=== PATIENT | female | born 1930 | race Caucasian/White ===

== ENCOUNTER 2016-10-08 00:12 | Inpatient (IN) | payer MEDICARE, BC, OTHER ==
--- NOTE | ~2016-10-08 | EGD ---
EGD REPORT [facility] [address] [address] NAME: CAROLYNE GUZMAN : 34 STATUS : ADM IN PAT#: [id number] AGE: 86 ADM/REG DATE : 10/08/16 MR#: [id number] REPORT SERV DATE: 10/09/16 DICTATED BY: TOBI JAVIER DATE: 10/09/16 REPORT STATUS : Draft TRANSCRIBED BY: [facility] DATE: 10/09/16 [facility] Patient Name: Carolyne Guzman Date of : 1930 Attending MD: TOBI JAVIER MD Procedure Date No Time: 10/09/2016 Procedure: Colonoscopy Indications: Hematochezia Referring MD: Willie Mcbride Medicines: Monitored Anesthesia Care Complications: No immediate complications. Estimated blood loss: Minimal. Procedure: Pre-Anesthesia Assessment: - ASA Grade Assessment: III - A patient with severe systemic disease. After I obtained informed consent, the scope was passed under direct vision. Throughout the procedure, the patient's blood pressure, pulse, and oxygen saturations were monitored continuously. The CF [id number] was introduced through the anus and advanced to the cecum, identified by appendiceal orifice and ileocecal valve. The colonoscopy was performed without difficulty. The patient tolerated the procedure well. The quality of the bowel preparation was fair. Findings: The perianal and digital rectal examinations were normal. Pertinent negatives include normal sphincter tone and no palpable rectal lesions. A 12 mm ulcerated polypoid lesion was found in the transverse colon. Oozing was present. Biopsies were taken with a cold forceps for histology. Area was successfully injected with 5 mL Spot (carbon black) for tattooing. Estimated blood loss was minimal. A semi-sessile polyp was found in the transverse colon. The polyp was 10 mm in size. The polyp was removed with a hot snare. Resection and retrieval were complete. Estimated blood loss was minimal. A few small-mouthed diverticula were found in the sigmoid colon. Non-bleeding internal hemorrhoids were found during retroflexion and were medium-sized. The exam was otherwise without abnormality. Impression: - Rule out malignancy, tumor in the transverse colon. Biopsied. Injected. Likely source of bleeding. - One 10 mm polyp in the transverse colon. Resected and retrieved. - Diverticulosis in the sigmoid colon. EGD REPORT [address] [place]. [address] NAME: CAROLYNE GUZMAN : 32 STATUS : ADM IN [facility]#: [id number] AGE: 86 ADM/REG DATE : 10/08/16 MR#: [id number] REPORT SERV DATE: 10/09/16 DICTATED BY: TOBI JAVIER DATE: 10/09/16 REPORT STATUS : Draft TRANSCRIBED BY: [facility] DATE: 10/09/16 - Non-bleeding internal hemorrhoids. - The examination was otherwise normal. Recommendation: - Return patient to [facility] for [facility]. - Await pathology results. - Clear liquid diet. - Need to hold ASA and Plavix for now Procedure Code(s): --- Professional --- 59320, Colonoscopy, flexible, proximal to splenic flexure; with removal of tumor(s), polyp(s), or other lesion(s) by snare technique 84936, 59, Colonoscopy, flexible, proximal to splenic flexure; with biopsy, single or multiple 42908, Colonoscopy, flexible, proximal to splenic flexure; with directed submucosal injection(s), any substance Diagnosis Code(s): --- Professional --- D49.0, Neoplasm of unspecified behavior of digestive system D12.3, Benign neoplasm of transverse colon K64.8, Other hemorrhoids K57.30, Diverticulosis of large intestine without perforation or abscess without bleeding K92.1, Melena CPT copyright 2013 [employer]. All rights reserved. The codes documented in this report are preliminary and upon skilled trades teacher review may be revised to meet current compliance requirements. Tobi Javier MD TOBI JAVIER MD 10/09/2016 10:08 AM This report has been signed electronically. Number of Addenda: 0 Note Initiated On: 10/09/2016 9:17 AM Scope Withdrawal Time 0 hours 19 minutes 54 seconds [address] [id number]
--- NOTE | ~2016-10-08 | OP ---
Record Of Operation [facility] [address] [place]. [address] NAME: VIKTORIYA HERNANDES : [birth year] STATUS : ADM IN 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 PROCEDURES: Laparoscopic right colectomy with resection of terminal ilium and ileocolonic anastomosis. SURGEON: Samir Dodd M.D. ANESTHESIA: General with intubation. COMPLICATIONS: None. ESTIMATED BLOOD LOSS: 25 mL. SPECIMENS: Terminal ileum, right colon up to the proximal transverse colon. LAP AND SPONGE COUNTS: Correct x3. DRAINS: Silicone drain in subcutaneous tissue. BRIEF HISTORY: This 86-year-old female had been admitted to the hospital emergently with evidence for GI bleeding. Her workup revealed evidence for a cancer and what was thought to be the transverse colon associated with this bleeding. The patient's workup showed no evidence for metastatic disease. It was felt that laparoscopic partial colectomy, possible laparotomy, was indicated. This procedure, the risks, benefits, and alternatives, including but not limited to the risk for bleeding, infection, enterotomy, injury to any abdominal structure, postop small bowel obstruction, ileus, incisional hernia, dehiscence, anastomotic leak, requiring reoperation with ileostomy, ureteral injury, possible need for laparotomy, and unforeseen complications including deep venous thrombosis, pulmonary embolus, myocardial infarction, stroke, pneumonia, and were fully and completely explained to the patient and family at length prior to the surgery. The fact that this was a major operation with risk for major morbidity and mortality in this elderly frail patient with dementia was explained. Their questions were answered. They understood the risks and agreed to the surgery as planned. DESCRIPTION OF PROCEDURE: After being properly identified and after discussing the risks of the surgery with the patient and family again in the preoperative area, she was taken to the operating room and placed in the supine position on the operating room table. General anesthesia was administered. She was intubated without difficulty. A De La Cruz catheter was inserted. The abdomen was prepped and draped sterilely in the usual fashion. After an appropriate "time-out" per [facility] standards, a small transverse incision was made just below Record Of Operation [address] [address] NAME: VIKTORIYA HERNANDES : 32 STATUS : ADM IN PAT#: [id number] AGE: 86 ADM/REG DATE : 10/08/16 MR#: [id number] REPORT SERV DATE: 10/11/16 DICTATED BY: SAMIR DODD III DATE: 10/11/16 REPORT STATUS : Draft TRANSCRIBED BY: MODL DATE: 10/11/16 the umbilicus. The skin and fascia on either side of this were elevated with towel clips. A Veress needle was placed through the incision into the peritoneal cavity. Correct position of the needle in the peritoneal cavity was confirmed by the hanging drop test. The abdominal cavity was insufflated to about 13 mmHg of carbon dioxide. The correct position of air in the peritoneal cavity was confirmed by palpation. The Veress needle was removed and replaced with a 10-mm trocar. The laparoscope was placed through this. The abdomen was inspected. We identified the area which had been tattooed in the mid right colon. There was no evidence for carcinomatosis or peritoneal implants. A 5-mm trocar was then placed in the midline, midway between the umbilicus and xiphoid process, under direct vision of the laparoscope. Another 5-mm trocar was placed in the midline, just above the pubis, also under direct vision of the laparoscope. Again, the abdomen was inspected. All quadrants were inspected, and the liver was inspected. There was no evidence for metastatic disease. The appropriate instruments were placed through the trocars. The patient was rolled slightly to her left. The right colon was grasped and retracted medially. Using sharp dissection, the peritoneal reflection of the right colon was divided along the line of Toldt, from the cecum to the hepatic flexure. The colohepatic ligament was divided. After full mobilization of the right colon, a small right subcostal incision was made directly over the hepatic flexure. The incision was continued through the subcutaneous tissue. Hemostasis was controlled with cautery. The incision was continued through all layers of fascia. The abdominal cavity was entered. The right colon was mobilized into the wound. We identified the area which had been tattooed by the endoscopist in the mid right colon. There was a palpable tumor here. The tumor again appeared to be in the right colon rather than in the transverse colon. We selected a point for division of terminal ileum just proximal to the ileocecal valve. A window was made in the mesentery to the ileum at this point. A HI stapler used about the ileum at this point. We then made a window in the mesentery to the proximal transverse colon just beyond the hepatic flexure and a HI stapler was used about the colon at this point. The mesentery to the right colon was then divided along the base of the mesentery using the Harmonic scalpel. This was done along the base of the mesentery so as to perform a correct oncologic dissection of the lymphovascular supply to the right colon. Great care was taken not to injure the duodenum. The right colon was thus removed. Interpreted as containing the cancer with clear margins. It was clear that this lesion again was the lesion which had been marked by the endoscopist. We then performed a [id number]-kjth anastomosis between the divided terminal ileum and the proximal transverse colon. This was performed by aligning the antimesenteric border of small bowel with antimesenteric border of the colon with interrupted 3-0 silk sutures. A small opening was then made in the antimesenteric border of the small bowel and corresponding antimesenteric border of the colon. A HI stapler was placed through this and fired. The defect created by the stapler was then closed with a TA-60 stapler. This staple line was oversewn with interrupted 3-0 silk sutures. The "crotch" anastomosis was secured with 3-0 silk sutures. Upon completion of this, the anastomosis was widely patent to palpation. It was not twisted or kinked in anyway and was not under any tension. The Record Of Operation [facility] [address] [facility] [place]. [address] NAME: VIKTORIYA HERNANDES : 32 STATUS : ADM IN [facility]#: [id number] AGE: 86 ADM/REG DATE : 10/08/16 MR#: [id number] REPORT SERV DATE: 10/11/16 DICTATED BY: SAMIR DODD III DATE: 10/11/16 REPORT STATUS : Draft TRANSCRIBED BY: MODL DATE: 10/11/16 mesenteric defect was closed with a running 3-0 chromic suture. It should be noted on opening the colon before the anastomosis, there was noted to be old blood within the lumen of the colon. Again, the anastomosis was patent to palpation. When completed, it was not twisted or kinked in anyway, and it was not under any tension. This was reduced back into the abdominal cavity. The right upper quadrant was irrigated copiously with saline. Hemostasis was assured. The fascia of this incision was closed in two layers with a looped #1 running PDS suture. All trocars were removed. The fascia of the infraumbilical incision was closed with 0 Vicryl suture. The skin incisions were closed with a running subcuticular 4-0 Monocryl stitches. The right subcostal incision was closed by closing the subcutaneous tissue with a running 3-0 chromic suture over a silicone drain which was brought out through the lateral aspect of the incision. The incisions were injected with 0.5% Marcaine. Dressings were applied. Anesthesia was reversed, and the patient was taken to the recovery room in stable condition. She tolerated the procedure well. Her family was informed the results of the surgery. The patient will remain in the hospital for postoperative care. RHJ/DARREL Samir Dodd III, M.D. / [id number] CC: Billy Pollock MD William M. Cooney, MD
--- NOTE | ~2016-10-08 | HP ---
History And Physical [facility] [address] [place]. [address] NAME: VIKTORIYA GUZMAN : 32 STATUS : ADM IN [facility]#: [id number] AGE: 86 ADM/REG DATE : 10/08/16 MR#: [id number] REPORT SERV DATE: 10/08/16 DICTATED BY: JAMAAL CAT DATE: 10/08/16 REPORT STATUS : Draft TRANSCRIBED BY: MODL DATE: 10/08/16 DATE OF ADMISSION: 10/08/2016 CHIEF COMPLAINT: Bright red blood per rectum. HISTORY OF PRESENT ILLNESS: This is an 86-year-old female with a history of CVA in 2005, essential hypertension, and hypothyroidism, who presents to the Emergency Room at [facility] with the above-mentioned complaint. History is obtained from the patient, her daughter who was at bedside, and reviewing data available on the MyClasses system. According to Ms. Guzman, she had been in usual state of health until about two weeks ago when she states she fell down or slipped off very tall bed on to the floor and fell on her buttocks. Since then, she has been sore in her bottom. Now two weeks later, she says about two days ago, she started seeing some blood in her stools. She felt like she had to go and have a bowel movement and felt it very smooth. When she looked down, it was a lot of blood in the toilet. Also, when she wiped, she saw blood. She had another episode the same day and then the next day, she had two more episodes similar to this when she mentioned it to her daughter they decided to come in to the ER to be evaluated. In the emergency room, initial workup revealed stable hemoglobin hematocrit levels, CT scan of her abdomen and pelvis did not reveal any acute gastrointestinal problems which showed an L1 compression fracture. She had a couple bowel months for a bowel movement when she was here and they were very small bloody bowel movement. Hospitalist Service is asked to admit her for further evaluation and treatment. At the time of my evaluation, she denied any chest pain, palpitations, or orthopnea. She had no cough, hemoptysis, night sweats, or weight loss. She had no falls or loss of consciousness recently other than those mentioned above. She denied any fevers, chills, nausea, vomiting, diarrhea, hematemesis or hematuria. No other history of recent travel or exposures other than those mentioned above. PAST MEDICAL HISTORY: Significant for essential hypertension, hypothyroidism, history of CVA in 2006 with very minimal residual neurological deficits, history of dementia, osteoporosis. SOCIAL HISTORY: She has never smoked. Does not drink or use recreational drugs. FAMILY HISTORY: Noncontributory. MEDICATIONS: At home were reviewed by me in the chart today and reordered. REVIEW OF SYSTEMS: As in history of present illness. All other systems were reviewed in detail and are quite unremarkable. PHYSICAL EXAMINATION: GENERAL: This is a pleasant 86-year-old, not in any acute distress. History And Physical [address] [address] NAME: VIKTORIYA GUZMAN : 32 STATUS : ADM IN [facility]#: [id number] AGE: 86 ADM/REG DATE : 10/08/16 MR#: [id number] REPORT SERV DATE: 10/08/16 DICTATED BY: JAMAAL CAT DATE: 10/08/16 REPORT STATUS : Draft TRANSCRIBED BY: DARREL DATE: 10/08/16 HEENT: Her head is atraumatic, normocephalic. She is alert, awake, oriented to time, place, and person. Her pupils are equal, reacting to light and accommodating. External ocular muscles are intact. Membranes are moist and pink. Sclerae nonicteric. NECK: Supple with no jugular venous distention, lymphadenopathy, or thyromegaly. LUNGS: Clear to auscultation with no wheezes, rubs, or crackles. HEART: Heart sounds were regular with no murmurs, rubs, or gallops. ABDOMEN: Soft, nontender. Bowel sounds are present. There was no organomegaly. EXTREMITIES: Showed no cyanosis, clubbing, or edema. NEUROLOGIC: Grossly intact. No focal sensory or motor deficits. Higher functions appeared intact. VITAL SIGNS: Her temperature today was 97.7, pulse 89, respirations 19 a minute, blood pressure was 124/70, oxygen saturations were 98% breathing at 1-2 L via nasal cannula. LABORATORY DATA: Reviewed on the My[employer] system showed a normal CMP. CBC revealed a white blood cell count of 13,300, hemoglobin was 11.4, hematocrit 32.1, platelet count was 242,000. Her prothrombin time was 14 with an INR of 1.1. Films of the CT scan of her abdomen and pelvis were reviewed by me on the PACS and official Radiology comments were also reviewed. There is no acute intra-abdominal pelvic pathology pertaining to the GI tract. There is an L1 compression fracture. A 12-lead EKG done in the emergency room was reviewed and interpreted by me. There is normal sinus rhythm with a rate of 87 with left branch block. IMPRESSION: 1. Bleeding per rectum. 2. Acute gastrointestinal bleeding. 3. Essential hypertension. 4. Hypothyroidism. 5. History of cerebrovascular accident in 2005. 6. Dementia. PLAN: We will admit Ms. Guzman to the Hospitalist Service with telemetry. We will go ahead and consult Gastroenterology Service, keep her n.p.o. We will type cross and transfuse only if needed. Right now, her hemoglobin and hematocrit levels are stable. We will follow serial hemoglobin and hematocrit levels. We will continue all other medications and treatments at this time and place her on IV fluids for volume replacement. We will check her chemistry, CBC, and thyroid function in the morning. Meanwhile, we will continue thyroid replacement therapy. She will be placed on SCDs for DVT prophylaxis while here. I will also hold her aspirin and Plavix that she is on for now until GI has had a chance to see her. I have discussed the above plans with the patient and the family. Questions were answered. They are agreeable to the above. Hospitalist Service will be following her during her stay here. /DARREL Jamaal Cta, History And Physical [address] [address] NAME: VIKTORIYA GUZMAN : 32 STATUS : ADM IN PAT#: [id number] AGE: 86 ADM/REG DATE : 10/08/16 MR#: [id number] REPORT SERV DATE: 10/08/16 DICTATED BY: JAMAAL CAT DATE: 10/08/16 REPORT STATUS : Draft TRANSCRIBED BY: DARREL DATE: 10/08/16 Billy / [id number] CC: DO Willie Ritchie MD
--- NOTE | ~2016-10-08 | CN ---
Consultation Report [address] [place]. [address] NAME: VIKTORIYA HERNANDES : 32 STATUS : ADM IN PAT#: [id number] AGE: 86 ADM/REG DATE : 10/08/16 MR#: [id number] REPORT SERV DATE: 10/10/16 DICTATED BY: SAMIR DODD III DATE: 10/10/16 REPORT STATUS : Draft TRANSCRIBED BY: MODPascual DATE: 10/10/16 CONSULT DATE OF CONSULTATION: 10/10/2016 REASON FOR CONSULT: 1. GI bleeding. 2. Biopsy-proven cancer of the transverse colon. 3. Recommendation regarding surgical management. HISTORY OF PRESENT ILLNESS: We were asked to see this 86-year-old female in the hospital today for the above reasons. The patient was admitted to the hospital on Friday of this week with bright red blood per rectum. She has had no nausea or vomiting. The patient has a history of dementia and her history per the patient is somewhat vague but she had a definite bright red blood per rectum according to her family. Further workup included colonoscopy which shows a mass in the transverse colon with biopsy confirming adenocarcinoma. The patient denies any abdominal pain. She has had no nausea or vomiting. She has had no fever or chills. She has had no diarrhea. She has had no hematemesis. PAST MEDICAL HISTORY: 1. History of dementia. 2. Hypertension. 3. Hypothyroidism. 4. History of cerebrovascular accident in the past. 5. History of osteoporosis. ALLERGIES: SULFA AND LATEX. MEDICATIONS: Norvasc; Lipitor; Celexa; Xalatan; Protonix; Timoptic; and Diovan. SOCIAL HISTORY: The patient lives locally with her . No history of tobacco or alcohol use. FAMILY HISTORY: Unremarkable. REVIEW OF SYSTEMS: The patient's 14-point review of systems was otherwise unremarkable. PHYSICAL EXAMINATION: OBJECTIVE PHYSICAL EXAM: GENERAL: This is a female, in no acute distress. She is alert, Consultation Report [address]. [address] NAME: VIKTORIYA HERNANDES : 32 STATUS : ADM IN PAT#: [id number] AGE: 86 ADM/REG DATE : 10/08/16 MR#: [id number] REPORT SERV DATE: 10/10/16 DICTATED BY: SAMIR DODD III DATE: 10/10/16 REPORT STATUS : Draft TRANSCRIBED BY: MODL DATE: 10/10/16 but is clearly confused regarding some of her medical history. VITAL SIGNS: Blood pressure 109/62, pulse 60, and temperature 98.7. HEENT: Unremarkable. Cranial nerves 2 through 12 were normal. LUNGS: Clear. CARDIAC: Normal. ABDOMEN: Soft. Nontender. No masses. EXTREMITIES: Normal. LABORATORY DATA: Hematocrit is low at 23. CT scan of the abdomen and pelvis shows no evidence for metastatic disease. An old compression fracture in the L1 is noted. Colonoscopy shows a 12 mm mass in the transverse colon which has been biopsied and confirmed to be positive for invasive adenocarcinoma. ASSESSMENT: 1. An 86-year-old female with biopsy-proven cancer of the transverse colon, associated with GI bleeding and anemia, requiring 2 units of blood in transfusion so forth, with no evidence for metastatic disease. 2. Dementia. 3. Hypothyroidism. 4. History of cerebrovascular accident in the past. 5. Hypertension. PLAN: We discussed this in detail with the patient and her daughter. We have recommended laparoscopic transverse colectomy, possible laparotomy. We will schedule this to be done tomorrow for her. This procedure, the risks, benefits, and alternatives, including but not limited to the risk for bleeding, infection, enterotomy, injury to abdominal structure, postop small bowel obstruction, ileus, incisional hernia, dehiscence, anastomotic leak requiring reoperation, colostomy, ureteral injury, possible need for laparotomy, possibility of injury to the spleen requiring splenectomy and unforeseen complications including deep venous thrombosis, pulmonary embolus, myocardial infarction, stroke, pneumonia, anesthetic complications, and , were fully and completely explained to the patient and her daughter. The expected length of recovery of both open and laparoscopic procedures has been explained. The option of nonoperative management has been offered but declined. The patient's daughter had questions which have been answered. She and the patient understand the risks and agreed to surgery as planned. ROSS/DARREL Samir Dodd III, M.D. / [id number] Consultation Report [place] [address] [address] NAME: VIKTORIYA HERNANDES : 32 STATUS : ADM IN PAT#: [id number] AGE: 86 ADM/REG DATE : 10/08/16 MR#: [id number] REPORT SERV DATE: 10/10/16 DICTATED BY: SAMIR DODD III DATE: 10/10/16 REPORT STATUS : Draft TRANSCRIBED BY: MODL DATE: 10/10/16 CC: DO Willie Ritchie MD
--- NOTE | ~2016-10-08 | IDS ---
Interim Discharge Summary [facility] [address] [place]. [address] NAME: VIKTORIYA HERNANDES : 34 STATUS : ADM IN [facility]#: [id number] AGE: 86 ADM/REG DATE : 10/08/16 MR#: [id number] REPORT SERV DATE: 10/13/16 DICTATED BY: SAMIR BARRON DATE: 10/13/16 REPORT STATUS : Draft TRANSCRIBED BY: MODL DATE: 10/13/16 ADMISSION DATE: 10/08/2016 DISCHARGE DATE: CONSULTING PHYSICIANS: Dr. Sethi for GI and Dr. Chavarria for Surgery. INTERIM DIAGNOSES: 1. Status post right colectomy and terminal ileum removal with ileocolonic anastomosis. 2. Acute blood loss anemia, status post two units of packed RBC. 3. Hypertension. 4. History of permanent pacemaker. 5. History of cerebrovascular accident. 6. Hypophosphatemia. 7. Status post hypokalemia. 8. Old compression fractures of the vertebral spine. 9. Moderate protein-calorie malnutrition. 10.Dementia. 11.Noncompliance with medications. DIAGNOSTIC EXAMS: Colonoscopy reveals tumor in the transverse colon. Biopsy revealed invasive adenocarcinoma. IMAGING: Chest CAT scan without contrast showing mild bilateral lower lobe atelectasis, otherwise no acute pulmonary pathology. No pulmonary masses or nodules. No lymphadenopathy. Ectatic ascending thoracic aorta. Mild cardiomegaly with heavy atherosclerotic calcification of the coronary arteries. Chronic compression fracture at the L1 level. Minimal retropulsion at the L1 superior endplate. Mild spinal canal narrowing. Diffuse bony demineralization. Status post right thyroidectomy. Fullness and heterogeneity in the remaining left thyroid nodule, likely related to underlying multinodular goiter. CAT scan of the abdomen showing no acute abnormality. Compression deformity at L1 of 40% to 50% of undetermined age. HOSPITAL COURSE: Please refer to the H and P done by Dr. Lee, dated 10/08/2016. Briefly, this is an 86-year-old female, who comes in for hematochezia. The patient has a history of CVA, hypertension and permanent pacemaker, came in with two-day history of blood in her stools. The patient was then brought to the emergency room, where a GI consultation was done. Colonoscopy showed the above findings, and a surgical consultation was done. The patient then had a laparoscopic right colectomy with resection of the terminal ileum and ileocolonic anastomosis. Pathology of that is still pending. Meanwhile, the patient was transferred out of the IMCU and the patient is slowly being given increased diet, while we are monitoring and correcting the electrolyte abnormalities. We had PT evaluate the patient and they recommend rehab facility. The plan right now is to continue the recovery of the patient and later on send the patient to rehab, while the pathology is followed up. Hopefully, we have achieved the surgical cure. Partner of [facility] will be following up the patient starting Friday. Interim Discharge Summary [address] [address] NAME: VIKTORIYA HERNANDES : 34 STATUS : ADM IN [facility]#: [id number] AGE: 86 ADM/REG DATE : 10/08/16 MR#: [id number] REPORT SERV DATE: 10/13/16 DICTATED BY: SAMIR BARRON DATE: 10/13/16 REPORT STATUS : Draft TRANSCRIBED BY: DARREL DATE: 10/13/16 NÉSTOR/DARREL Samir Barron M.D. / [id number] CC: Billy Gardner MD
--- NOTE | ~2016-10-08 | CN ---
Consultation Report [facility] [address] [place]. [address] NAME: VIKTORIYA GUZMAN : 34 STATUS : ADM IN PAT#: [id number] AGE: 86 ADM/REG DATE : 10/08/16 MR#: [id number] REPORT SERV DATE: 10/08/16 DICTATED BY: ALEC MENDOZA DATE: 10/08/16 REPORT STATUS : Draft TRANSCRIBED BY: MODPascual DATE: 10/08/16 GI CONSULTATION DATE OF CONSULTATION: 10/08/2016 REASON FOR CONSULTATION: Evaluation and management of bright red blood per rectum/lower GI bleeding. HISTORY OF PRESENT ILLNESS: Ms Guzman is an 86-year-old patient who has seen Dr. Hinton in the past, presented to [facility] on 10/08/2016 with a chief complaint of bright red blood per rectum. History of present illness has been gathered from the patient's daughter, minimally from the patient as well as from the patient's chart. She has a history of what the daughter states is a one to two day history of bright red blood per rectum up to two weeks, the patient cannot really tell me, she depends on her daughter to supply me the history of present illness. The daughter states that her father told her that the patient began having bright red blood per rectum two days ago, multiple episodes. No abdominal pain. No nausea or vomiting. She has recently been constipated per the daughter's report with them using MiraLAX with little to no improvement. She has a history of dementia with decreased appetite secondary to which the daughter states she was on Megace roughly three months ago. Her last colonoscopy was in 2002. She has a history of descending colon diverticulosis. CT scan was done on admission without contrast, only showing diverticulosis of the sigmoid colon. I have discussed with the patient as well as the patient's daughter, who is present at the bedside. We will plan on colonoscopy tomorrow. Risks, benefits, alternatives,and complications detailed for them to include, but not limited to risk of bleeding, perforation, infection, reaction to medications, as well as cardiac and pulmonary side effects. They are agreeable to proceed. The patient had a CBC done in 07/2016 with a hemoglobin of 15.1, on admission it was 11.4. PAST MEDICAL HISTORY: Positive for diverticulosis, hypertension, hypothyroidism, history of CVA in 2005 with Plavix usage, dementia, osteoporosis. SOCIAL HISTORY: She lives with her . Denies alcohol, tobacco, or illicits. FAMILY HISTORY: Negative from a GI standpoint. ALLERGIES: SULFA AND LATEX. HOME MEDICATIONS: Norvasc, aspirin, Lipitor, Celexa, Plavix, Actonel, timolol, and Diovan. REVIEW OF SYSTEMS: A 10-point review of systems obtained with pertinent positives addressed in the history of present illness. Consultation Report [address] [place]. [address] NAME: VIKTORIYA GUZMAN : 34 STATUS : ADM IN [facility]#: [id number] AGE: 86 ADM/REG DATE : 10/08/16 MR#: [id number] REPORT SERV DATE: 10/08/16 DICTATED BY: ALEC MENDOZA DATE: 10/08/16 REPORT STATUS : Draft TRANSCRIBED BY: DARREL DATE: 10/08/16 PHYSICAL EXAMINATION: VITAL SIGNS: Temperature 97.7, pulse 86, respirations 18, and blood pressure is 130/71. NEUROLOGIC: Reveals an alert female, resting in bed, oriented to self, and she knows she is in the hospital. GENERAL: She is cooperative. She is in no obvious distress. She is awake. She is alert. She is thin framed. HEAD, EARS, EYES, NOSE, AND THROAT: Anicteric. Pupils equal, round, reactive to light and accommodation. Normocephalic and atraumatic. NECK: No JVD. No palpable nodes. Supple. LUNGS: Clear anteriorly with normal respiratory effort exhibited. Equal expansion. CARDIOVASCULAR: Regular rate and rhythm. ABDOMEN: Soft, flat. Nontender and nondistended. Active bowel sounds in all four quadrants. No rebound, guarding, or organomegaly appreciated. EXTREMITIES: No edema. Normal distal pulses. SKIN: Warm, dry, and intact. PERTINENT LABORATORY DATA: Sodium 138, potassium 4, BUN is 19, creatinine is 0.63. White count 13.3, hemoglobin 11.4, hematocrit is 32.1, platelet count is 242. ASSESSMENT: 1. Lower gastrointestinal bleed with bright blood per rectum. Differential diagnosis includes diverticular, hemorrhoidal, versus neoplasm. 2. Constipation. 3. Anemia. 4. Dementia. 5. History of cerebrovascular accident with Plavix. 6. Hypothyroidism. PLAN: 1. Clear liquid diet. N.p.o. after midnight. 2. Colonoscopy on 10/09/2016. 3. Follow H and H. 4. Check a TSH. 5. We will need daily stool softener secondary to constipation after colonoscopy complete. 6. We will follow. JAMIE/DARREL DIONICIO Mendez / [id number] Consultation Report [address] [place]. [address] NAME: VIKTORIYA GUZMAN : 34 STATUS : ADM IN PAT#: [id number] AGE: 86 ADM/REG DATE : 10/08/16 MR#: [id number] REPORT SERV DATE: 10/08/16 DICTATED BY: ALEC MENDOZA DATE: 10/08/16 REPORT STATUS : Draft TRANSCRIBED BY: DARREL DATE: 10/08/16 CC: DO Willie Ritchie MD
--- NOTE | ~2016-10-08 | DS ---
Discharge Summary [place] [id number] [facility] [place]. [address] NAME: VIKTORIYA HERNANDES : 34 STATUS : DIS IN PAT#: [id number] AGE: 86 ADM/REG DATE : 10/08/16 MR#: [id number] REPORT SERV DATE: 10/17/16 DICTATED BY: DATE: REPORT STATUS : Draft TRANSCRIBED BY: MODL DATE: 10/16/16 ADMISSION DATE: 10/08/2016 DISCHARGE DATE: 10/16/2016 ATTENDING: Dr. Brendon Tan and Dr. Gerald Frederick. CONSULTANTS: Included Dr. Bryan of Gastroenterology and Dr. Cornel Chavarria of Surgery. DISCHARGE DIAGNOSES: 1. Newly diagnosis transverse colon adenocarcinoma, status post resection and ileocolonic anastomosis on 10/11/2016, pathology showing moderately differentiated adenocarcinoma of the transverse colon invading the deep muscularis layer, lymphatics, and venous system. Surgical margins negative. Twenty-nine lymph nodes negative. Stage T2 N0 MX. 2. Acute blood loss anemia due to rectal bleeding - status post two units packed red blood cells in the admission. 3. Hypertension. 4. History of a cerebrovascular accident - previously on Plavix and aspirin. Plavix resumed postoperatively with a plan to resume aspirin two weeks postoperatively. 5. Moderate protein-calorie malnutrition. 6. Dementia with recent failure to thrive and weight loss. 7. Generalized weakness and debility - for additional physical rehabilitation. 8. Osteoporosis with multiple old vertebral compression fractures. 9. Depression and anxiety. 10.History of a permanent pacemaker. IMAGING AND DIAGNOSTICS: 1. CT abdomen and pelvis, 10/07/2016, for rectal bleeding showed no acute abnormality. Compression deformity of L1, 40% to 50%. Undetermined age. 2. CT chest without contrast. 10/10/2016, mild bilateral lower lobe atelectasis. No pulmonary masses. No chest lymphadenopathy. Ectatic ascending thoracic aorta measuring up to 3.9 cm in diameter. Mild cardiomegaly with heavy atherosclerotic calcification and evidence of prior pacemaker placement. Chronic compression fracture at L1 with minimal retropulsion of L1 superior endplate with no spinal canal narrowing. Status post right thyroidectomy with fullness and heterogeneity of the remaining left thyroid lobe likely related to underlying multinodular goiter. PROCEDURES: Included: 1. Colonoscopy on 10/09/[address] Bryan with pathology demonstrating a poorly differentiated adenocarcinoma of the transverse colon. 2. Resection of transverse colon mass with ileocolonic anastomosis on 10/11/[address] Cornel Chavarria with pathology as dictated above. PERTINENT LABORATORY DATA: Hemoglobin values as low as 7.7, discharge hemoglobin value 8.4. Coagulation studies normal. BRIEF HISTORY: For full details, please see the previously dictated history of present Discharge Summary [place] [address] [place]. [address] NAME: VIKTORIYA HERNANDES : 34 STATUS : DIS IN PAT#: [id number] AGE: 86 ADM/REG DATE : 10/08/16 MR#: [id number] REPORT SERV DATE: 10/17/16 DICTATED BY: DATE: REPORT STATUS : Draft TRANSCRIBED BY: MODL DATE: 10/16/[address] Jamaal Lee. This is an 86-year-old female, who presented to the emergency department with chief complaint of bright red blood per rectum ongoing for a few days before ER evaluation. In the emergency department, initial workup revealed stable hemoglobin and hematocrit values. CT scan of abdomen and pelvis did not show any acute abnormalities. However, she continued to have hematochezia in the emergency department and was admitted for further evaluation. HOSPITAL COURSE: The patient was admitted to [facility] tele unit, with GI consultation. The patient was seen by [facility] on 10/08/2016, with recommendation for colonoscopy, which was performed by Dr. Bryan on 10/09/2016. This showed a transverse colon mass, with subsequent pathology demonstrating poorly differentiated adenocarcinoma of the colon. Subsequently, Surgical Oncology consult was obtained from Dr. Cornel Chavarria, who took the patient for a resection of the transverse colon mass on 10/11/2016. Subsequent imaging of CT chest, abdomen, and pelvis revealed no metastatic disease, and pathology from the transverse colon resection showed some invasion of the deep muscularis, lymphatics, and venous system, but negative surgical margins and 29 lymph nodes negative. The patient was recovering well from the surgery, and did not require any postoperative transfusions nor did she demonstrate any ongoing postoperative blood loss. Her diet was advanced with success, and she had return of normal bowel functioning prior to discharge. Currently, it is not felt that she will require any additional chemotherapy or radiation therapy. However, her weakness and debility limits treatment options at present in any event. Family has requested that she go to [facility] for additional physical rehabilitation. They will follow up with Dr. Cornel Chavarria in the office in two weeks, for postoperative evaluation, with possible referral to [facility] for an opinion regarding the necessity of her candidacy for additional treatment at that point in time. DISCHARGE DISPOSITION: The patient is being discharged to [facility] when a bed is available. She has no specific activity or dietary restrictions. FOLLOWUP: Follow up with Dr. Cornel Chavarria in two weeks as dictated above. DISCHARGE MEDICATIONS: Include: 1. Amlodipine 5 mg p.o. daily. 2. Plavix 75 mg p.o. daily. 3. Latanoprost eye drops in both eyes at bedtime. 4. Valsartan 80 mg p.o. q.a.m. 5. Citalopram 10 mg p.o. daily. 6. Lipitor 20 mg p.o. q.h.s. 7. Timolol eye drops in both eyes each morning. 8. Folic acid one tablet p.o. daily. 9. Risedronate 150 mg p.o. monthly. 10.Aspirin 81 mg p.o. daily - to resume on 10/25/2016. Discharge Summary [address] [address] NAME: VIKTORIYA HERNANDES : 34 STATUS : DIS IN PAT#: [id number] AGE: 86 ADM/REG DATE : 10/08/16 MR#: [id number] REPORT SERV DATE: 10/17/16 DICTATED BY: DATE: REPORT STATUS : Draft TRANSCRIBED BY: DARREL DATE: 10/16/16 11.Protonix 40 mg p.o. daily. 12.Reglan 5 mg p.o. q.a.c. t.i.d. p.r.n. nausea. 13.Tylenol 650 mg p.o. q.8 hours p.r.n. pain. 14.Iron sulfate 325 mg p.o. daily with breakfast. 15.MiraLAX 17 g in 8 ounces of water daily p.r.n. constipation. 16.Colace 100 mg p.o. b.i.d. A CBC should be checked weekly while the patient is at [facility], with results sent to primary care provider, Dr. Willie Mcbride. Forty minutes was spent in completion of the discharge. TRAVIS/DARREL Buddy Frederick M.D. / [id number] CC: Billy Stovall MD Munford Yates III, M.D. Richard Hunter Jennings III, M.D.
[~2016-10-08 00:12] MED LIST: ACTONEL150 MG PO; ASAB PO; BETIMOL0.5 % OPH; CELEXA10 PO; DIOV80 PO; EXELON9.5T TOP; FOLBEE PO; LIPITOR20 PO; MAGNESIUM OTC PO; MEGACEUDL PO; NORV5 PO; PLAVIX PO; VITAMIN B OTC PO; VITAMIN C OTC PO; VITAMIN D OTC PO; XALAT OPH; [UNRECOGNIZED DRUG - OTHER] PO; [UNRECOGNIZED DRUG - OTHER] PO
[2016-10-08] MEDS ORDERED: CELEXA10 PO (00:53)
[2016-10-08] MEDS ORDERED: NORV5 PO (00:54)
[2016-10-08] MEDS ORDERED: DIOV80 PO (00:54)
[2016-10-08] MEDS ORDERED: LIPITOR20 PO (00:54)
[2016-10-08] MEDS ORDERED: XALAT OPH (00:55)
[2016-10-08] MEDS ORDERED: PLAVIX PO (00:55)
[2016-10-08] MEDS ORDERED: TIMOLOL MAL0.5 % OPH (00:55)
[2016-10-08] MEDS ORDERED: HALF81 PO (00:57)
[2016-10-08] MEDS ORDERED: ACTONEL150 MG PO (00:57)
[2016-10-08] MEDS ORDERED: FOLBEE PO (00:57)
[2016-10-08 01:28] LABS: BASOPHILS 0.5 %; BASOPHILS ABSOLUTE 0.07 10/3/uL (0.0-0.16); EOSINOPHILS 1.4 %; EOSINOPHILS ABSOLUTE 0.19 10/3/uL (0.0-0.53); ER CBC TAT 0 Hrs 10 MinsNP; HEMATOCRIT 32.1 % (36.0-48.0); HEMOGLOBIN 11.4 g/dL (12.0-16.0); IMMATURE GRANULOCYTES 0.5 %; IMMATURE GRANULOCYTES ABSOLUTE 0.06 10/3/uL (0.0-0.11); LYMPHOCYTES ABSOLUTE 1.87 10/3/uL (0.67-4.30); MANUAL DIFF NO %; MEAN CORPUS HGB CONC 35.5 g/dL (32.0-36.0); MEAN PLATELET VOLUME 8.4 fL (9.2-13.0); MONOCYTES 6.9 %; MONOCYTES ABSOLUTE 0.92 10/3/uL (0.21-1.20); NEUTROPHILS 76.7 %; NEUTROPHILS ABSOLUTE 10.21 10/3/uL (2.02-8.40); PLATELET COUNT 242 10/3/uL (150-400); RBC DISTRIBUTION WIDTH 12.3 % (12.0-16.0); RED CELL COUNT 3.45 10/6/uL (4.0-5.6); WHITE BLOOD CELLS 13.3 10/3/uL (4.5-10.5)
[2016-10-08 01:35] LABS: BUN (BLOOD UREA NITROGEN) 19 MG/DL (6-23); CALCIUM, SERUM 8.9 MG/DL (8.5-10.4); CHLORIDE, SERUM 102 MMOL/L (96-112); CREATININE 0.63 MG/DL (0.55-1.02); GFR AFRICAN AMERICAN 95 ML/MIN (>=60); GFR NON AFRICAN AMERICAN 82 ML/MIN (>=60); GLUCOSE, SERUM 93 MG/DL (60-99); SODIUM, SERUM 138 MMOL/L (135-148)
[2016-10-08 01:39] LABS: CO2 (CARBON DIOXIDE) 26 MMOL/L (24-34)
[2016-10-08 01:45] LABS: INTERNATIONAL NORMAL RATI 1.1 UNITS (-); PARTIAL THROMBO TIME 25.1 SEC (22.5-37.2)
[2016-10-08 10:03] LABS: BASOPHILS 0.5 %; BASOPHILS ABSOLUTE 0.05 10/3/uL (0.0-0.16); EOSINOPHILS 1.4 %; EOSINOPHILS ABSOLUTE 0.13 10/3/uL (0.0-0.53); IMMATURE GRANULOCYTES 0.4 %; IMMATURE GRANULOCYTES ABSOLUTE 0.04 10/3/uL (0.0-0.11); LYMPHOCYTES 22.4 %; LYMPHOCYTES ABSOLUTE 2.15 10/3/uL (0.67-4.30); MEAN CORPUS HGB CONC 34.4 g/dL (32.0-36.0); MEAN CORPUSCULAR HEMOGLOB 31.8 pg (26.0-34.0); MEAN CORPUSCULAR VOLUME 92.3 fL (80-100); MEAN PLATELET VOLUME 8.4 fL (9.2-13.0); MONOCYTES 5.1 %; MONOCYTES ABSOLUTE 0.49 10/3/uL (0.21-1.20); NEUTROPHILS 70.2 %; NEUTROPHILS ABSOLUTE 6.72 10/3/uL (2.02-8.40); PLATELET COUNT 221 10/3/uL (150-400); RBC DISTRIBUTION WIDTH 12.6 % (12.0-16.0); WHITE BLOOD CELLS 9.6 10/3/uL (4.5-10.5)
[2016-10-08 10:05] LABS: HEMATOCRIT 25.3 % (36.0-48.0); HEMOGLOBIN 8.7 g/dL (12.0-16.0); MANUAL DIFF NO %; RED CELL COUNT 2.74 10/6/uL (4.0-5.6)
[2016-10-08 10:28] LABS: BUN (BLOOD UREA NITROGEN) 22 MG/DL (6-23); CALCIUM, SERUM 7.7 MG/DL (8.5-10.4); CHLORIDE, SERUM 108 MMOL/L (96-112); CO2 (CARBON DIOXIDE) 24 MMOL/L (24-34); CREATININE 0.66 MG/DL (0.55-1.02); GFR AFRICAN AMERICAN 94 ML/MIN (>=60); GFR NON AFRICAN AMERICAN 81 ML/MIN (>=60); GLUCOSE, SERUM 122 MG/DL (60-99); POTASSIUM, SERUM 4.2 MMOL/L (3.5-5.3); SODIUM, SERUM 141 MMOL/L (135-148); ULTRASENSITIVE TSH 0.433 MCIU/ML (0.358-3.740)
[2016-10-08 15:58] LABS: HEMOGLOBIN 7.7 g/dL (12.0-16.0)
[2016-10-08 15:59] LABS: HEMATOCRIT 22.2 % (36.0-48.0)
[2016-10-08 22:12] LABS: HEMATOCRIT 28.9 % (36.0-48.0)
[2016-10-09 01:19] LABS: HEMOGLOBIN 11.3 g/dL (12.0-16.0)
[2016-10-09 01:20] LABS: HEMATOCRIT 32.8 % (36.0-48.0)
[2016-10-09 07:49] LABS: BASOPHILS 0.5 %; BASOPHILS ABSOLUTE 0.04 10/3/uL (0.0-0.16); EOSINOPHILS 3.2 %; EOSINOPHILS ABSOLUTE 0.24 10/3/uL (0.0-0.53); HEMATOCRIT 32.4 % (36.0-48.0); HEMOGLOBIN 11.4 g/dL (12.0-16.0); IMMATURE GRANULOCYTES 0.4 %; IMMATURE GRANULOCYTES ABSOLUTE 0.03 10/3/uL (0.0-0.11); LYMPHOCYTES ABSOLUTE 2.55 10/3/uL (0.67-4.30); MEAN CORPUS HGB CONC 35.2 g/dL (32.0-36.0); MEAN CORPUSCULAR HEMOGLOB 31.9 pg (26.0-34.0); MEAN CORPUSCULAR VOLUME 90.8 fL (80-100); MEAN PLATELET VOLUME 8.5 fL (9.2-13.0); MONOCYTES 8.4 %; MONOCYTES ABSOLUTE 0.63 10/3/uL (0.21-1.20); NEUTROPHILS 53.5 %; PLATELET COUNT 157 10/3/uL (150-400); RBC DISTRIBUTION WIDTH 13.5 % (12.0-16.0); WHITE BLOOD CELLS 7.5 10/3/uL (4.5-10.5)
[2016-10-09 07:50] LABS: MANUAL DIFF NO %; RED CELL COUNT 3.57 10/6/uL (4.0-5.6)
[2016-10-09 07:56] LABS: INTERNATIONAL NORMAL RATI 1.1 UNITS (-); PARTIAL THROMBO TIME 24.4 SEC (22.5-37.2); PROTIME (NOT ORD) 14.5 SEC (12.0-14.5)
[2016-10-09 08:10] LABS: BUN (BLOOD UREA NITROGEN) 16 MG/DL (6-23); CALCIUM, SERUM 7.8 MG/DL (8.5-10.4); CHLORIDE, SERUM 109 MMOL/L (96-112); CO2 (CARBON DIOXIDE) 25 MMOL/L (24-34); CREATININE 0.58 MG/DL (0.55-1.02); GFR AFRICAN AMERICAN 98 ML/MIN (>=60); GFR NON AFRICAN AMERICAN 85 ML/MIN (>=60); GLUCOSE, SERUM 84 MG/DL (60-99); POTASSIUM, SERUM 3.4 MMOL/L (3.5-5.3); SODIUM, SERUM 143 MMOL/L (135-148); ULTRASENSITIVE TSH 0.856 MCIU/ML (0.358-3.740)
[2016-10-09 12:54] LABS: HEMATOCRIT 32.6 % (36.0-48.0); HEMOGLOBIN 11.5 g/dL (12.0-16.0)
[2016-10-09 22:41] LABS: HEMATOCRIT 26.7 % (36.0-48.0); HEMOGLOBIN 9.3 g/dL (12.0-16.0)
[2016-10-10 05:20] LABS: BASOPHILS 0.3 %; BASOPHILS ABSOLUTE 0.03 10/3/uL (0.0-0.16); EOSINOPHILS 1.9 %; HEMOGLOBIN 8.1 g/dL (12.0-16.0); IMMATURE GRANULOCYTES 0.4 %; IMMATURE GRANULOCYTES ABSOLUTE 0.04 10/3/uL (0.0-0.11); LYMPHOCYTES 15.6 %; LYMPHOCYTES ABSOLUTE 1.68 10/3/uL (0.67-4.30); MEAN CORPUS HGB CONC 34.9 g/dL (32.0-36.0); MEAN CORPUSCULAR HEMOGLOB 30.9 pg (26.0-34.0); MEAN CORPUSCULAR VOLUME 88.5 fL (80-100); MEAN PLATELET VOLUME 8.6 fL (9.2-13.0); MONOCYTES 7.6 %; MONOCYTES ABSOLUTE 0.82 10/3/uL (0.21-1.20); NEUTROPHILS 74.2 %; NEUTROPHILS ABSOLUTE 8.02 10/3/uL (2.02-8.40); PLATELET COUNT 126 10/3/uL (150-400); RBC DISTRIBUTION WIDTH 13.4 % (12.0-16.0)
[2016-10-10 05:26] LABS: HEMATOCRIT 23.2 % (36.0-48.0); MANUAL DIFF NO %; RED CELL COUNT 2.62 10/6/uL (4.0-5.6); WHITE BLOOD CELLS 10.8 10/3/uL (4.5-10.5)
[2016-10-10 05:43] LABS: CALCIUM, SERUM 7.3 MG/DL (8.5-10.4); CHLORIDE, SERUM 107 MMOL/L (96-112); CO2 (CARBON DIOXIDE) 25 MMOL/L (24-34); CREATININE 0.53 MG/DL (0.55-1.02); GFR AFRICAN AMERICAN 101 ML/MIN (>=60); GFR NON AFRICAN AMERICAN 87 ML/MIN (>=60); GLUCOSE, SERUM 86 MG/DL (60-99); POTASSIUM, SERUM 3.7 MMOL/L (3.5-5.3); SODIUM, SERUM 140 MMOL/L (135-148)
[2016-10-10 05:45] LABS: ALBUMIN 2.3 G/DL (3.5-5.0); BUN (BLOOD UREA NITROGEN) 8 MG/DL (6-23); PHOSPHORUS, SERUM 1.7 MG/DL (2.5-4.5)
[2016-10-10 13:01] LABS: CEA 2.4 NG/ML
[2016-10-10 15:44] LABS: HEMOGLOBIN 8.8 g/dL (12.0-16.0)
[2016-10-10 15:50] LABS: HEMATOCRIT 25.7 % (36.0-48.0)
[2016-10-11 00:11] LABS: HEMATOCRIT 23.5 % (36.0-48.0); HEMOGLOBIN 8.2 g/dL (12.0-16.0)
[2016-10-11 05:12] LABS: BUN (BLOOD UREA NITROGEN) 5 MG/DL (6-23); CALCIUM, SERUM 7.4 MG/DL (8.5-10.4); CHLORIDE, SERUM 109 MMOL/L (96-112); CO2 (CARBON DIOXIDE) 25 MMOL/L (24-34); CREATININE 0.47 MG/DL (0.55-1.02); GFR AFRICAN AMERICAN 105 ML/MIN (>=60); GFR NON AFRICAN AMERICAN 91 ML/MIN (>=60); GLUCOSE, SERUM 81 MG/DL (60-99); POTASSIUM, SERUM 3.2 MMOL/L (3.5-5.3); SODIUM, SERUM 142 MMOL/L (135-148)
[2016-10-11 05:15] LABS: INTERNATIONAL NORMAL RATI 1.3 UNITS (-); PROTIME (NOT ORD) 15.7 SEC (12.0-14.5)
[2016-10-11 05:32] LABS: BASOPHILS 0.4 %; BASOPHILS ABSOLUTE 0.03 10/3/uL (0.0-0.16); EOSINOPHILS 4.1 %; EOSINOPHILS ABSOLUTE 0.29 10/3/uL (0.0-0.53); HEMATOCRIT 24.7 % (36.0-48.0); HEMOGLOBIN 8.5 g/dL (12.0-16.0); IMMATURE GRANULOCYTES 0.3 %; IMMATURE GRANULOCYTES ABSOLUTE 0.02 10/3/uL (0.0-0.11); LYMPHOCYTES ABSOLUTE 1.98 10/3/uL (0.67-4.30); MEAN CORPUS HGB CONC 34.4 g/dL (32.0-36.0); MEAN CORPUSCULAR HEMOGLOB 31.6 pg (26.0-34.0); MEAN PLATELET VOLUME 8.5 fL (9.2-13.0); MONOCYTES 9.3 %; MONOCYTES ABSOLUTE 0.66 10/3/uL (0.21-1.20); NEUTROPHILS 57.9 %; NEUTROPHILS ABSOLUTE 4.09 10/3/uL (2.02-8.40); PLATELET COUNT 150 10/3/uL (150-400); RBC DISTRIBUTION WIDTH 13.1 % (12.0-16.0); RED CELL COUNT 2.69 10/6/uL (4.0-5.6); WHITE BLOOD CELLS 7.1 10/3/uL (4.5-10.5)
[2016-10-11 05:33] LABS: MANUAL DIFF NO %; MEAN CORPUSCULAR VOLUME 91.8 fL (80-100)
[2016-10-11 17:35] LABS: HEMATOCRIT 25.4 % (36.0-48.0); HEMOGLOBIN 8.9 g/dL (12.0-16.0)
[2016-10-11 23:45] LABS: HEMOGLOBIN 8.4 g/dL (12.0-16.0)
[2016-10-12 05:20] LABS: BASOPHILS 0.1 %; BASOPHILS ABSOLUTE 0.01 10/3/uL (0.0-0.16); EOSINOPHILS 0.1 %; EOSINOPHILS ABSOLUTE 0.02 10/3/uL (0.0-0.53); HEMATOCRIT 22.6 % (36.0-48.0); HEMOGLOBIN 7.9 g/dL (12.0-16.0); IMMATURE GRANULOCYTES 0.4 %; IMMATURE GRANULOCYTES ABSOLUTE 0.08 10/3/uL (0.0-0.11); LYMPHOCYTES ABSOLUTE 1.12 10/3/uL (0.67-4.30); MEAN CORPUSCULAR HEMOGLOB 31.7 pg (26.0-34.0); MEAN CORPUSCULAR VOLUME 90.8 fL (80-100); MEAN PLATELET VOLUME 8.5 fL (9.2-13.0); MONOCYTES 6.5 %; MONOCYTES ABSOLUTE 1.21 10/3/uL (0.21-1.20); NEUTROPHILS 86.9 %; NEUTROPHILS ABSOLUTE 16.11 10/3/uL (2.02-8.40); PLATELET COUNT 161 10/3/uL (150-400); RBC DISTRIBUTION WIDTH 12.8 % (12.0-16.0); RED CELL COUNT 2.49 10/6/uL (4.0-5.6)
[2016-10-12 05:21] LABS: MANUAL DIFF NO %; WHITE BLOOD CELLS 18.6 10/3/uL (4.5-10.5)
[2016-10-12 05:32] LABS: BUN (BLOOD UREA NITROGEN) 5 MG/DL (6-23); CALCIUM, SERUM 7.4 MG/DL (8.5-10.4); CHLORIDE, SERUM 102 MMOL/L (96-112); CO2 (CARBON DIOXIDE) 24 MMOL/L (24-34); CREATININE 0.66 MG/DL (0.55-1.02); GFR AFRICAN AMERICAN 94 ML/MIN (>=60); GFR NON AFRICAN AMERICAN 81 ML/MIN (>=60); GLUCOSE, SERUM 123 MG/DL (60-99); POTASSIUM, SERUM 3.2 MMOL/L (3.5-5.3); SODIUM, SERUM 137 MMOL/L (135-148)
[2016-10-12 08:02] LABS: HEMOGLOBIN 7.8 g/dL (12.0-16.0)
[2016-10-12 16:11] LABS: HEMOGLOBIN 8.8 g/dL (12.0-16.0)
[2016-10-12 16:15] LABS: HEMATOCRIT 25.6 % (36.0-48.0)
[2016-10-13 05:03] LABS: BASOPHILS 0.1 %; BASOPHILS ABSOLUTE 0.02 10/3/uL (0.0-0.16); EOSINOPHILS ABSOLUTE 0.14 10/3/uL (0.0-0.53); HEMATOCRIT 26.5 % (36.0-48.0); HEMOGLOBIN 9.4 g/dL (12.0-16.0); IMMATURE GRANULOCYTES 0.4 %; IMMATURE GRANULOCYTES ABSOLUTE 0.05 10/3/uL (0.0-0.11); LYMPHOCYTES 11.4 %; MANUAL DIFF NO %; MEAN CORPUS HGB CONC 35.5 g/dL (32.0-36.0); MEAN CORPUSCULAR HEMOGLOB 32.2 pg (26.0-34.0); MEAN CORPUSCULAR VOLUME 90.8 fL (80-100); MEAN PLATELET VOLUME 8.3 fL (9.2-13.0); MONOCYTES 7.9 %; MONOCYTES ABSOLUTE 1.11 10/3/uL (0.21-1.20); NEUTROPHILS 79.2 %; NEUTROPHILS ABSOLUTE 11.08 10/3/uL (2.02-8.40); PLATELET COUNT 205 10/3/uL (150-400); RED CELL COUNT 2.92 10/6/uL (4.0-5.6)
[2016-10-13 05:25] LABS: BUN (BLOOD UREA NITROGEN) 2 MG/DL (6-23); CALCIUM, SERUM 7.9 MG/DL (8.5-10.4); CHLORIDE, SERUM 97 MMOL/L (96-112); CO2 (CARBON DIOXIDE) 28 MMOL/L (24-34); GFR AFRICAN AMERICAN 103 ML/MIN (>=60); GFR NON AFRICAN AMERICAN 89 ML/MIN (>=60); GLUCOSE, SERUM 123 MG/DL (60-99); POTASSIUM, SERUM 3.6 MMOL/L (3.5-5.3); SODIUM, SERUM 134 MMOL/L (135-148)
[2016-10-13 05:26] LABS: PHOSPHORUS, SERUM 1.8 MG/DL (2.5-4.5)
[2016-10-14 06:22] LABS: BASOPHILS 0.1 %; BASOPHILS ABSOLUTE 0.01 10/3/uL (0.0-0.16); EOSINOPHILS 1.5 %; EOSINOPHILS ABSOLUTE 0.17 10/3/uL (0.0-0.53); HEMATOCRIT 24.6 % (36.0-48.0); HEMOGLOBIN 8.6 g/dL (12.0-16.0); IMMATURE GRANULOCYTES 0.4 %; IMMATURE GRANULOCYTES ABSOLUTE 0.05 10/3/uL (0.0-0.11); LYMPHOCYTES 12.2 %; LYMPHOCYTES ABSOLUTE 1.39 10/3/uL (0.67-4.30); MEAN CORPUSCULAR HEMOGLOB 31.2 pg (26.0-34.0); MEAN CORPUSCULAR VOLUME 89.1 fL (80-100); MEAN PLATELET VOLUME 8.4 fL (9.2-13.0); MONOCYTES 9.6 %; NEUTROPHILS 76.2 %; PLATELET COUNT 246 10/3/uL (150-400); RBC DISTRIBUTION WIDTH 13.1 % (12.0-16.0); RED CELL COUNT 2.76 10/6/uL (4.0-5.6); WHITE BLOOD CELLS 11.4 10/3/uL (4.5-10.5)
[2016-10-14 06:27] LABS: MANUAL DIFF NO %
[2016-10-14 06:36] LABS: BUN (BLOOD UREA NITROGEN) 4 MG/DL (6-23); CALCIUM, SERUM 7.5 MG/DL (8.5-10.4); CHLORIDE, SERUM 99 MMOL/L (96-112); CO2 (CARBON DIOXIDE) 24 MMOL/L (24-34); CREATININE 0.54 MG/DL (0.55-1.02); GFR AFRICAN AMERICAN 100 ML/MIN (>=60); GFR NON AFRICAN AMERICAN 87 ML/MIN (>=60); GLUCOSE, SERUM 125 MG/DL (60-99); POTASSIUM, SERUM 4.3 MMOL/L (3.5-5.3); SODIUM, SERUM 132 MMOL/L (135-148)
[2016-10-15 07:04] LABS: BASOPHILS 0.2 %; BASOPHILS ABSOLUTE 0.02 10/3/uL (0.0-0.16); EOSINOPHILS 3.9 %; EOSINOPHILS ABSOLUTE 0.31 10/3/uL (0.0-0.53); HEMOGLOBIN 7.4 g/dL (12.0-16.0); IMMATURE GRANULOCYTES 0.6 %; IMMATURE GRANULOCYTES ABSOLUTE 0.05 10/3/uL (0.0-0.11); LYMPHOCYTES 16.2 %; MEAN CORPUS HGB CONC 33.8 g/dL (32.0-36.0); MEAN CORPUSCULAR HEMOGLOB 30.5 pg (26.0-34.0); MEAN CORPUSCULAR VOLUME 90.1 fL (80-100); MEAN PLATELET VOLUME 8.1 fL (9.2-13.0); MONOCYTES 14.4 %; MONOCYTES ABSOLUTE 1.16 10/3/uL (0.21-1.20); NEUTROPHILS 64.7 %; PLATELET COUNT 231 10/3/uL (150-400); RBC DISTRIBUTION WIDTH 13.2 % (12.0-16.0); RED CELL COUNT 2.43 10/6/uL (4.0-5.6)
[2016-10-15 07:06] LABS: HEMATOCRIT 21.9 % (36.0-48.0); MANUAL DIFF NO %
[2016-10-15 07:22] LABS: BUN (BLOOD UREA NITROGEN) 6 MG/DL (6-23); CALCIUM, SERUM 7.9 MG/DL (8.5-10.4); CHLORIDE, SERUM 103 MMOL/L (96-112); CO2 (CARBON DIOXIDE) 25 MMOL/L (24-34); CREATININE 0.53 MG/DL (0.55-1.02); GFR AFRICAN AMERICAN 101 ML/MIN (>=60); GFR NON AFRICAN AMERICAN 87 ML/MIN (>=60); GLUCOSE, SERUM 85 MG/DL (60-99); PHOSPHORUS, SERUM 3.2 MG/DL (2.5-4.5); POTASSIUM, SERUM 3.8 MMOL/L (3.5-5.3); SODIUM, SERUM 139 MMOL/L (135-148)
[2016-10-15 14:26] LABS: HEMOGLOBIN 9.9 g/dL (12.0-16.0)
[2016-10-16 05:42] LABS: BASOPHILS 0.1 %; BASOPHILS ABSOLUTE 0.01 10/3/uL (0.0-0.16); EOSINOPHILS 2.4 %; EOSINOPHILS ABSOLUTE 0.24 10/3/uL (0.0-0.53); HEMATOCRIT 24.7 % (36.0-48.0); HEMOGLOBIN 8.4 g/dL (12.0-16.0); IMMATURE GRANULOCYTES 1.3 %; IMMATURE GRANULOCYTES ABSOLUTE 0.13 10/3/uL (0.0-0.11); LYMPHOCYTES 15.4 %; LYMPHOCYTES ABSOLUTE 1.54 10/3/uL (0.67-4.30); MANUAL DIFF NO %; MEAN CORPUSCULAR VOLUME 91.1 fL (80-100); MEAN PLATELET VOLUME 8.1 fL (9.2-13.0); MONOCYTES 15.4 %; MONOCYTES ABSOLUTE 1.54 10/3/uL (0.21-1.20); NEUTROPHILS 65.4 %; NEUTROPHILS ABSOLUTE 6.54 10/3/uL (2.02-8.40); PLATELET COUNT 296 10/3/uL (150-400); RBC DISTRIBUTION WIDTH 13.3 % (12.0-16.0); RED CELL COUNT 2.71 10/6/uL (4.0-5.6)
[2016-10-16 05:57] LABS: BUN (BLOOD UREA NITROGEN) 9 MG/DL (6-23); CALCIUM, SERUM 8.3 MG/DL (8.5-10.4); CHLORIDE, SERUM 101 MMOL/L (96-112); CO2 (CARBON DIOXIDE) 25 MMOL/L (24-34); CREATININE 0.58 MG/DL (0.55-1.02); GFR AFRICAN AMERICAN 98 ML/MIN (>=60); GFR NON AFRICAN AMERICAN 85 ML/MIN (>=60); GLUCOSE, SERUM 76 MG/DL (60-99); POTASSIUM, SERUM 3.7 MMOL/L (3.5-5.3); SODIUM, SERUM 138 MMOL/L (135-148)
== END 2016-10-16 16:05 | DRG 330 ==
LOC: ER 00:12 → 7NO 04:29 → 5SO 10-11 16:05
PROVIDERS: Emergency Medicine; Hospitalist; Internal Medicine; Internal Medicine Gastroenterology; Internal Medicine Pulmonary Disease; Nurse Practitioner Family; Surgery
PROC: 30233N1 Transfusion of Nonautologous Red Blood Cells into Peripheral Vein, Percutaneous Approach (ICD-10-PCS; 2016-10-08)
PROC: 0DBL8ZX Excision of Transverse Colon, Via Natural or Artificial Opening Endoscopic, Diagnostic (ICD-10-PCS; principal; 2016-10-09 07:00)
PROC: 0DTF4ZZ Resection of Right Large Intestine, Percutaneous Endoscopic Approach (ICD-10-PCS; 2016-10-11)
PROC: 0DBB4ZZ Excision of Ileum, Percutaneous Endoscopic Approach (ICD-10-PCS; 2016-10-11)
DX: C18.4 Malignant neoplasm of transverse colon (principal); D62 Acute posthemorrhagic anemia; E44.0 Moderate protein-calorie malnutrition; F03.90 Unspecified dementia, unspecified severity, without behavioral disturbance, psychotic disturbance, mood disturbance, and anxiety; K92.1 Melena; K57.30 Diverticulosis of large intestine without perforation or abscess without bleeding; K64.8 Other hemorrhoids; I10 Essential (primary) hypertension; E03.9 Hypothyroidism, unspecified; Z79.82 Long term (current) use of aspirin; Z88.2 Allergy status to sulfonamides; Z91.040 Latex allergy status; Z79.02 Long term (current) use of antithrombotics/antiplatelets; Z79.899 Other long term (current) drug therapy; Z86.73 Personal history of transient ischemic attack (TIA), and cerebral infarction without residual deficits; M81.0 Age-related osteoporosis without current pathological fracture; K59.00 Constipation, unspecified; R62.7 Adult failure to thrive; F32.9 Major depressive disorder, single episode, unspecified; F41.9 Anxiety disorder, unspecified; Z95.0 Presence of cardiac pacemaker; Z91.81 History of falling
CPT/HCPCS: 36415; 71250; 74176; 80048; 80069; 82378; 83605; 83735; 84100; 84132; 84443; 85014; 85018; 85025; 85610; 85730; 86850; 86900; 86901; 86920; 88305; 88309; 88341; 88342; 93005; 97110-GP; 97116-GP; 97162-GP; 97530-GP; 99285; A9270-GY; C9113; G8978-CK-GP; G8979-CJ-GP; J0690; J2250; J2270; J2405; J2710; J2765; J3010; P9016